=== PATIENT | male | born 1980 | race Caucasian/White ===

== ENCOUNTER 2021-02-02 23:20 | Inpatient (IN) ==
[2021-02-02 23:55] LABS: Bilirubin,Urine Negative (Negative); Blood,Urine Negative (Negative); Clarity,Urine Clear (Clear); Color,Urine Colorless (Yellow); Glucose,Urine (UA) Normal (Normal); Ketones,Urine Negative (Negative); Leukocyte Esterase,Urine Negative (Negative); Nitrite,Urine Negative (Negative); Protein,Urine Negative (Neg-Trace); Specific Gravity,Urine 1.005 (1.010-1.025); Urobilinogen,Urine Normal (Normal)
[2021-02-03 00:04] LABS: Amphetamine Screen,Urine Negative ng/mL (Cutoff=1000); Barbiturate Screen,Urine Negative ng/mL (Cutoff=200); Benzodiazepines Screen,Urine Negative ng/mL (Cutoff=200); Cannabinoid Screen,Urine Negative ng/mL (Cutoff = 50); Cocaine Screen,Urine Negative ng/mL (Cutoff= 300); Opiate Screen,Urine Negative ng/mL (Cutoff=300); Phencyclidine Screen,Urine Negative ng/mL (Cutoff=25)
[2021-02-03 00:25] LABS: Basophils # 0.1 K/mcL (0.0-0.2); Basophils % 0.6 %; Eosinophils # 0.1 K/mcL (0.0-0.6); Eosinophils % 0.7 %; Hematocrit 51.3 % (37.5-50.1); Immature Granulocytes % 0.3 % (0-4); Lymphocytes # 3.8 K/mcL (0.6-4.6); Mean Corpuscular HGB Conc 33.1 g/dL (31.6-35.5); Mean Corpuscular Hemoglobin 31.1 pg (28.0-33.3); Mean Platelet Volume 9.5 fL (9.4-12.4); Monocytes # 0.7 K/mcL (0.0-1.3); Monocytes % 6.5 %; Neutrophils # 5.4 K/mcL (1.6-8.9); Platelet Count 270 K/mcL (140-400); Red Blood Count 5.46 M/mcL (4.19-5.50); Red Cell Distribution Width 12.9 % (11.5-14.5); Segmented Neutrophils % 53.9 %; White Blood Count 10.1 K/mcL (4.3-11.1)
[2021-02-03 00:41] LABS: Acetaminophen < 10 mcg/mL (10-20); Alanine Aminotransferase 35 Units/L (7-52); Albumin 4.7 g/dL (3.5-5.7); Albumin/Globulin Ratio 1.6 (1.1-2.2); Alkaline Phosphatase 78 Units/L (34-104); Aspartate Amino Transferase 29 Units/L (13-39); BUN/Creatinine Ratio 9 (6-26); Bilirubin,Direct 0.1 mg/dL (0.0-0.2); Bilirubin,Indirect 0.5 mg/dL (0.0-1.0); Bilirubin,Total 0.6 mg/dL (0.3-1.0); Blood Urea Nitrogen 10 mg/dL (6-20); Calcium 9.4 mg/dL (8.6-10.3); Carbon Dioxide 22 mEq/L (23-29); Chloride 106 mEq/L (98-107); Chol/HDL Ratio 3.9 (0-4.9); Cholesterol 213 mg/dL (< 200); Ethanol 165 mg/dL (Less than 10); Globulin 2.9 g/dL (2.4-3.5); Glucose 81 mg/dL (70-105); HDL Cholesterol 55 mg/dL (40-59); LDL Cholesterol,Calculated 101 mg/dL (< 100); Osmolality,Calculated 288 (280-300); Potassium 4.3 mEq/L (3.5-5.1); Salicylate < 2.5 mg/dL (15.0-30.0); Sodium 140 mEq/L (136-145); Thyroid Stimulating Hormone 1.853 mcIU/mL (0.340-5.600); Total Protein 7.6 g/dL (6.4-8.9); Triglycerides 284 mg/dL (< 150); eGFR For African Americans > 60 (> 60); eGFR For Non-African Americans > 60 (> 60)
[2021-02-03 01:04] LABS: Estimated Average Glucose 103 mg/dl; Hemoglobin A1C 5.2 %
[2021-02-03] MEDS ORDERED: Ibuprofen 400 MG TABLET PO PRN (10:33)
[2021-02-03] MEDS ORDERED: Mag Hydrox/Al Hydrox/Simeth 30 ML UDC PO PRN (10:33)
[2021-02-03] MEDS ORDERED: hydrOXYzine pamoate 25 MG CAPSULE PO PRN (10:33)
[2021-02-03] MEDS ORDERED: *HR* LORazepam 1 MG TABLET PO PRN (10:33)
[2021-02-03] MEDS ORDERED: Acetaminophen 325 MG TABLET PO PRN (10:33)
[2021-02-03] MEDS ORDERED: *HR* LORazepam 2 MG/ML VIAL IM PRN (10:33)
[2021-02-03] MEDS ORDERED: Haloperidol Lactate 5 MG/ML VIAL IM PRN (10:33)
[2021-02-03] MEDS ORDERED: MOM Conc 10 ML UD.LIQ PO PRN (10:33)
[2021-02-03] MEDS ORDERED: traZODone 50 MG TABLET PO PRN (10:33)
[2021-02-03] MEDS ORDERED: haloperidoL 5 MG TABLET PO PRN (10:33)
[2021-02-03] MEDS: Nicotine 21 MG PATCH.TD24 TD SCH (13:19)
[2021-02-04] MEDS ORDERED: Folic Acid 1 MG TABLET PO SCH (09:00)
[2021-02-04] MEDS ORDERED: Thiamine (B-1) 100 MG TABLET PO SCH (09:00)
[2021-02-04] MEDS ORDERED: Vitamin B Complex/Vit C/Vit E 1 EACH TABLET PO SCH (09:00)
[2021-02-04 09:30] VITALS: BP 116/72
[2021-02-04] MEDS: Nicotine 21 MG PATCH.TD24 TD SCH (09:47)
== END 2021-02-04 12:15 | disposition home or self-care (01) | DRG 885 ==
LOC: EMEROOARM 23:20 → 1ANU 02-03 10:22
PROVIDERS: ADMIT Psychiatry & Neurology Forensic Psychiatry; ATTEND Psychiatry & Neurology Forensic Psychiatry